=== PATIENT | male | born 1955 | race African-American/Black ===

== ENCOUNTER → 2017-10-17 | Outpatient (CLI) | payer OTHER ==
[2017-10-17] MEDS: REGADENOSON 0.4 MG/5 ML DISP.SYRIN. IV (10:58)
== END | disposition home or self-care (01) ==
LOC: NM 08:03
DX: I48.91 Unspecified atrial fibrillation (principal); I10 Essential (primary) hypertension; Z87.891 Personal history of nicotine dependence
CPT/HCPCS: 78452; 93017; 93306; 96374; 96375; 96376; A9500; J2785

== ENCOUNTER → 2018-02-02 | Outpatient (CLI) | payer OTHER | END | disposition home or self-care (01) | LOC: KCIC CT 15:20 | DX: J44.9 Chronic obstructive pulmonary disease, unspecified (principal); R91.8 Other nonspecific abnormal finding of lung field; I70.0 Atherosclerosis of aorta; I25.10 Atherosclerotic heart disease of native coronary artery without angina pectoris; I10 Essential (primary) hypertension; E78.5 Hyperlipidemia, unspecified; F17.200 Nicotine dependence, unspecified, uncomplicated | CPT/HCPCS: 71250 ==

== ENCOUNTER → 2018-02-09 | Outpatient (CLI) | payer OTHER | END | disposition home or self-care (01) | LOC: KCIC US 15:26 | DX: N32.89 Other specified disorders of bladder (principal); I10 Essential (primary) hypertension; E78.5 Hyperlipidemia, unspecified; Z87.891 Personal history of nicotine dependence | CPT/HCPCS: 76770 ==

== ENCOUNTER → 2019-04-23 | Outpatient (CLI) | payer OTHER ==
[2014-09-30 15:20] VITALS: BP 138/83
[~2019-04-23] MED LIST: ASPI325T8 PO; ATOR40TA PO; LEVO500T59 PO; METO25TA4 PO
--- NOTE | 2019-04-24 12:38 | SLEEP ---
DATE OF STUDY: OBJECTIVE: The patient is a 63-year-old male with excessive somnolence and pulmonary disease, rule out sleep apnea. Height 67 inches, weight 201 pounds, BMI 31.5. [place] sleep score 3. INTERPRETATION: The apnea-hypopnea index is 42.5 events per hour of sleep. A total of 197 obstructive apneas are observed with 50 mixed apneas, 30 hypopneas, a total of 277 respiratory events. The minimum oxygen saturation is 78%. No significant cardiac abnormalities are observed. IMPRESSION: Abnormal home sleep study showing obstructive sleep apnea and hypopnea with also some mixed apnea. RECOMMENDATIONS: The patient will return to Dr. Bernard's clinic for further evaluation. Thank you for letting us to help with the patient's care. ALLA HAHN MD DR: VIRGINIE/cheyenne JOB#: [id number] / [id number] JHONATAN Manley MD, AMAN MD
== END | disposition home or self-care (01) ==
LOC: RT 09:33
PROVIDERS: ATTEND Internal Medicine Critical Care Medicine
DX: G47.33 Obstructive sleep apnea (adult) (pediatric) (principal)
CPT/HCPCS: G0399

== ENCOUNTER → 2019-09-11 | Outpatient (CLI) | payer OTHER ==
[2014-09-30 15:20] VITALS: BP 138/83
[2019-09-11] MEDS: REGADENOSON 0.4 MG/5 ML DISP.SYRIN. IV ONE (10:45)
--- NOTE | 2019-09-11 13:15 | RAD ---
MR#: [id number] Date of Study: 09/11/2019 Ordering Physician: IVAN GARCIA, Referring Physician: WICHO MAYO Tech: Yamila Barillas RT (R) (N) APPROVED REPORT Test Type: Pharmacological Stress Nurse/Tech: Vimal Marinelli RN Test Indications: Cardiac Arrythmia Cardiac History: Cardiac cath 7 yrs. ago, HTN, See EMR. Medications: ASA 81mg QD, See EMR. Medical History: Smoker for 50yrs., COPD, See EMR. Resting ECG: SR w/ PACs Resting Heart Rate: 52 bpm Resting Blood Pressure: 191/76mmHg Pretest Chest Pain: No chest pain Nurse/Tech Notes Lungs diminished throughout, Heart tones regular. Consent: The procedure was explained to the patient in lay terms. Informed consent was witnessed. Canelo eout was entered into [employer]. History and Stress Test performed by MANJU Phan, SARAH (R) (N) Pharm. Details Pharmacologic stress testing was performed using 0.4mg per 5ml of regadenoson given intravenously ove r 7-10 seconds. Stress Symptoms No chest pain or symptoms. POST EXERCISE Reason for Termination: Infusion complete Max HR: 68 bpm Max Blood Pressure: 196/81mmHg Blood Pressure response to exercise: Normal blood pressure response during stress. Heart Rate response to exercise: WNL Chest Pain: No. Arrhythmia: Yes. Frequent PVCs ST Change: No. INTERPRETATION Stress EKG Conclusion: No evidence of stress induced EKG changes. Imaging Protocol IMAGE PROTOCOL: Rest Tc-99m/stress Tc-99m 1 day Rest: Stress: Viability: Radiopharm.Tc99m GotfmxobqGw09g Sestamibi Hukq39uBs 33mCi Duration 15min. 10min. Img Date 09/11/2019 09/11/2019 Inj-Img [id number]. 60min. Rest Admin Site:IV - Right HandAdministrator:MANJU Phan ARRT (R)(N) Stress Admin Site: IV - Right HandAdministrator: MANJU Phan ARRT (R)(N) STRESS DATA End Diast. Vol.93.0mlAv. Heart Rate57.0bpm End Syst. Vol.39.0mlCO Index BSA0.0L/min Myocardial Ytxs874.0gEject. Qhycfiad17.0% Stress Rates Pk. Fill Rate2.26EDV/secLVtime Pk. Fill 271.90msec Pk. Empty Rate3.20ESV/secLVtime Pk. Lploe840.37msec 07/06 Pk. Fill0.52EDV/sec Stress Scores Regional WT3.00Summed WT15.00 Regional WM0.00Summed WM4.00 LV Perfusion There is a moderate to large sized inferior mostly REVERSIBLE defect with a fixed component at the ap ex suggestive of prior infarct with reversible perfusion defect. Wall Motion Moderate inferior wall hypokinesis with EF of 45%. LV Perfusion 1 TCD/TID: Yes LV Perf. Quant 17 Seg. SSS12.00 17 Seg. SRS9.00 17 Seg. SDS4.00 Stress Defect Extent (% LAD)28.80Rest Defect Extent (% LAD)24.40Rev. Defect Extent (% LAD)0.00 Stress Defect Extent (% LCX) 20.00Rest Defect Extent (% LCX)18.80Rev. Defect Extent (% LCX)2.50 Stress Defect Extent (% RCA)23.30Rest Defect Extent (% RCA)7.80Rev. Defect Extent (% RCA)11.10 Stress Defect Extent (% AYDEE)24.80Rest Defect Extent (% AYDEE)18.90Rev. Defect Extent (% AYDEE)4.30 Other Information Quality:Average Risk Assessment: Moderate-High Risk Conclusion 1. No evidence of stress induced EKG changes. 2. Abnormal stress perfusion with reversible inferior wall defect and TID 3. Mild LV dysfunction. EF 45% 4. Moderate to high risk study Recommendations Consider cardiac catheterization if clinically indicated. Signed by : Kevin Cuenca, Electronically Approved : 09/11/2019 13:15:03
== END ==
LOC: NM 10:15
PROVIDERS: ATTEND Internal Medicine Cardiovascular Disease
DX: I49.9 Cardiac arrhythmia, unspecified (principal)
CPT/HCPCS: 78452; 93017; A9500; J2785

== ENCOUNTER → 2019-09-24 | Outpatient (CLI) | payer OTHER, MEDICARE ==
[~2019-09-24] VITALS: Ht 170.2 cm; Wt 93.9 kg
[2019-09-24] VITALS (17 sets, daily range): BP systolic 141–238; BP diastolic 77–102
[~2019-09-24] MED LIST changes: +0.9 % SODIUM CHLORIDE 10 ML DISP.SYRIN. IV PRN; +ACETAMINOPHEN 325 MG TABLET. PO PRN; +ALBU2.5V8 IH; +ASPI-630 PO; +ASPIRIN 325 MG TABLET ONE; +ASPIRIN 325 MG TABLET PO ONE; +ASPIRIN ENTERIC COATED 325 MG TABLET.DR. PO SCH; +BIVALIRUDIN 250 MG VIAL. IV ONE; +CONTRAST GIVEN. MC PRN; +IODIXANOL 320 MG/ML 100 ML VIAL. IART ONE; +IODIXANOL 320 MG/ML 100 ML VIAL. ONE; +IV 1/2 NORMAL SALINE 1,000 ML IV SCH; +LIDOCAINE 1% Multi-Dose 20 ML VIAL. INJ ONE; +LIDOCAINE 1% Multi-Dose 20 ML VIAL. ONE; +LIDOCAINE 1% PF 2 ML VIAL. INJ ONE; +LIDOCAINE 1% PF 2 ML VIAL. ONE; +LOSA25TA54 PO; +LOSARTAN POTASSIUM 25 MG TABLET. PO ONE; +METO50TA6 PO; +MIDAZOLAM HCL/PF 2 MG/2 ML VIAL. IV ONE; +MIDAZOLAM HCL/PF 2 MG/2 ML VIAL. ONE; +NITROGLYCERIN SUBLINGUAL 0.4 MG BOTTLE OF 25. SL PRN; +PRAS10TA9 PO; +PRASUGREL 10 MG TABLET. ONE; +PRASUGREL 10 MG TABLET. PO ONE; +PRASUGREL 10 MG TABLET. PO SCH; +TIOT4MIS3 IH; +fentaNYL PF VIAL 100 MCG/2 ML VIAL IV ONE; +fentaNYL PF VIAL 100 MCG/2 ML VIAL ONE; +hydrALAZINE 20 MG/ML VIAL. IVP ONE; +hydrALAZINE 20 MG/ML VIAL. ONE
[2019-09-24 09:01] LABS: HEMATOCRIT 55.7 % (39.0-53.0); RED BLOOD COUNT 6.21 x10^6/uL (4.30-5.70); RED CELL DISTRIBUTION WIDTH 13.9 % (11.5-14.5); WHITE BLOOD COUNT 11.9 x10^3/uL (4.0-11.0)
[2019-09-24 09:11] LABS: CALCIUM 9.1 mg/dL (8.5-10.1); CREATININE 0.9 mg/dL (0.7-1.3); GFR 102.2; POTASSIUM 4.3 mmol/L (3.5-5.1)
[2019-09-24 09:29] LABS: PROTHROMBIN TIME PATIENT 13.5 SEC (11.7-14.0)
--- NOTE | 2019-09-24 10:50 | PDOC ---
MODERATE SEDATION ASSESSMENT RISKS/ALTERNATIVES Risks/Alternatives Risks and alternatives of this type of sedation and procedure discussed with: RISK/ALTERNATIVES: Patient H & P ON CHART H & P H & P on chart and reviewed for co-morbid conditions and appropriate labs. H&P ON CHART: Yes STATUS PREG STATUS ASSESSED: N/A MEDS/ALLERGIES REVIEWED Meds/Allergies Reviewed Medications and Allergies including time and route of recently administered narcotics and sedatives. MEDS/ALLERGIES REVIEWED: Yes ASA RATING ASA RATING: II AIRWAY ASSESSMENT Airway Assessment Airway patency, oral function limitations, presence of caps, crowns, dentures, partials, and ability to extend neck assessed. AIRWAY ASSESSMENT: Yes MALLAMPATI SCORE MALLAMPATI SCORE: II PRE-SEDATION ASSESSMENT PRE-SEDATION ASSESSMENT: Yes IVAN GARCIA MD Sep 24, 2019 10:50
--- NOTE | 2019-09-24 11:10 | CARD ---
MR#: [id number] Date of Study: 09/24/2019 Ordering Physician: IVAN INIGUEZ, Referring Physician: IVAN INIGUEZ Tech: RT Francisco (R) APPROVED REPORT Technologist: RT Francisco (R) Nurse: Kassandra Vieira RN Procedure(s) performed: 1. Left heart catheterization and selective coronary angiography 2. Successful PCI/drug eluting stent placement to the right coronary artery Sedation Time: 42 Minutes Contrast: 146 mL Visipaque Fluoro Time: 10.1 Minutes Dose: 61 Gycm2 INDICATION The indication(s) include : Unstable angina and positive stress test. [facility] Clinical Frailty Scale [facility] Clinical Frailty Scale: Mildly Frail Heart Failure Heart Failure: No PROCEDURE NARRATIVE After explaining the risks, benefits and alternative options, informed consent was obtained from simi ent. Patient was brought to the cardiac [employer] and his right groin was prepped and draped in the us ual fashion. 20 mL of 2% lidocaine was infiltrated into the skin and subcutaneous tissues for local a nesthesia. Arterial access was obtained the right common femoral artery and a 6 Macedonian sheath was ins erted. 6 Macedonian JL4 and 6 Macedonian JR4 catheters were used to perform selective angiography of the left and right coronary arteries. LVEDP and transaortic gradients were measured. The following findings w ere noted: FINDINGS 1. Hemodynamics: Left ventricle end-diastolic pressure 16 mmHg. No significant pullback gradient ac ross the aortic valve. 2. Coronary angiography: a. The left main coronary artery arose from the left sinus of Valsalva, gave rise to the left anteri or descending and left circumflex arteries and did not show any significant stenosis. b. The left anterior descending artery showed 40% stenosis in the midsegment. c. The left circumflex artery showed 30% stenosis in the midsegment. d. The right coronary artery was a large and dominant vessel arising from the right sinus of Valsalv a that showed a critical 95% stenosis in the midsegment with ulcerated plaque. INTERVENTION The right coronary artery was engaged with a 6 Macedonian JR4 guide catheter. The stenosis in the midsegm ent was crossed with a 0.014 inch SpeakingPal Pro water guidewire. This was predilated with a 3.0 x 15 jeffery te meter trek balloon followed by 3.25 x 15 mm noncompliant NC Euphora balloon. This was then success fully treated with a 3.5 x 18 mm resolute ej drug-eluting stent. Follow-up angiography showed resol ution of the stenosis to 0% with FELICITAS-3 distal flow. Patient tolerated the procedure well. Hemostasis was achieved using mynx closure device. There were no immediate complications. STENT DEPLOYMENT A drug-eluting stent was inserted and inflated up to rut for seconds. FELICITAS Flow FELICITAS Flow (Pre-Intervention): FELICITAS-2 FELICITAS Flow (Post-Intervention): FELICITAS-3 Conclusion 1. Severe single-vessel coronary artery disease involving the right coronary artery 2. Successful PCI/drug eluting stent placement to the right coronary artery Recommendations 1. Aspirin 325 mg daily for one month followed by 81 mg daily 2. Effient 10 mg daily 3. Cardiovascular risk factor modification Signed by : Ivan Iniguez, Electronically Approved : 09/24/2019 11:09:51
--- NOTE | 2019-09-24 15:18 | CARD ---
MR#: [id number] Date of Study: 09/24/2019 Ordering Physician: IVAN GARCIA, Referring Physician: IVAN GARCIA, Tech: Holly Tang APPROVED REPORT EXAM: Two-dimensional and M-mode echocardiogram with Doppler and color Doppler. Other Information Quality : AverageHR: 81bpm INDICATION Arrhythmia 2D DIMENSIONS Left Atrium(2D)3.6 (1.6-4.0cm)IVSd1.1 (0.7-1.1cm) Aortic Root(2D)3.1 (2.0-3.7cm)LVDd4.5 (3.9-5.9cm) LVOT Diameter2.1 (1.8-2.4cm)PWd1.2 (0.7-1.1cm) LVDs2.8 (2.5-4.0cm)FS (%) 36.7 % SV60.2 mlLVEF(%)66.7 (>50%) Aortic Valve AoV Peak Oral.142.7cm/sAoV VTI26.0cm AO Peak GR.8.1mmHgLVOT VTI 19.35cm AO Mean GR.5mmHg Mitral Valve MV E Osyiulqw46.9cm/sMV DECEL [id number] MV A Eawwpqdt44.3cm/sE/A Ratio0.6 TDI Lateral E' P. V6.24cm/sMedial E' P. V6.95cm/s E/Lateral E'9.4E/Medial E'8.5 LEFT VENTRICLE The left ventricle is normal size. There is borderline concentric left ventricular hypertrophy. The l eft ventricular systolic function is normal and the ejection fraction is within normal range. The Eje ction Fraction is 50-55%. There is normal LV segmental wall motion. Transmitral Doppler flow pattern is Grade I-abnormal relaxation pattern. RIGHT VENTRICLE The right ventricle is normal size. There is normal right ventricular wall thickness. The right ventr icular systolic function is normal. ATRIA The left atrium size is normal. The right atrium size is normal. The interatrial septum is intact wit h no evidence for an atrial septal defect or patent foramen ovale as noted on 2-D or Doppler imaging. AORTIC VALVE The aortic valve is not well visualized. Doppler and Color Flow revealed trace aortic regurgitation. There is no significant aortic valvular stenosis. MITRAL VALVE The mitral valve is normal in structure and function. There is no evidence of mitral valve prolapse. There is no mitral valve stenosis. Doppler and Color Flow revealed no mitral valve regurgitation note d. TRICUSPID VALVE The tricuspid valve is not well visualized. Doppler and Color Flow revealed no tricuspid valve regurg itation noted. There is no tricuspid valve stenosis. PULMONIC VALVE The pulmonic valve is not well visualized. Doppler and Color Flow revealed no pulmonic valvular regur gitation. GREAT VESSELS The aortic root is normal in size. The IVC is normal in size and collapses >50% with inspiration. PERICARDIAL EFFUSION There is no evidence of significant pericardial effusion. Critical Notification Critical Value: No <Conclusion> The left ventricular systolic function is normal and the ejection fraction is within normal range. Th e Ejection Fraction is 50-55%. There is normal LV segmental wall motion. Technically difficult study Signed by : Kevin Cuenca, Electronically Approved : 09/24/2019 15:18:29
--- NOTE | 2019-09-24 16:16 | NUR ---
Losartan 25mg 1 tablet daily #30 with 3 refills called to [facility] at [facility] in [facility].
--- NOTE | 2019-09-24 16:19 | NUR ---
Called Dr. Iniguez regarding pt's elevated b/p. new order to start Losartan 25mg daily , gave first dose here before d/c. rt groin site dressing clean and intact. pt dose have some bruising under the edge of dressing and off the the lateral side of dressing but rt groin is soft - no hematoma. talked w/pt and his about elevated b/p and that I had talked to Dr. Iniguez about it and that he ordered Losartan. pt's said that he was taking amlodipine but didn't like and so he stopped taking it. then she stated that actually his metoprolol had been increased several weeks ago to 50mg bid. so pt will start the losartan and followup with Dr Iniguez in a month. discussed keeping track if he starts feeling funny on not liking how the losartan makes him feel. pt will start taking daily b/p first thing in am and keeping track and taking that info to next office visit. other d/c instructions reviewed. questions answered. out to vehicle per w/c- to drive pt home.
== END ==
LOC: CCL 08:37
PROVIDERS: ATTEND Internal Medicine Cardiovascular Disease
DX: I25.110 Atherosclerotic heart disease of native coronary artery with unstable angina pectoris (principal)
CPT/HCPCS: 36415; 80048; 85027; 85610; 93306; 93458; 99152; 99153; C1713; C1725; C1769; C1874; C1887; C1892; C9600; J0360; J0583; J1644; J2250; J3010; J3490; Q9967; 92928; G0269